=== PATIENT | female | born 1995 | race Hispanic/Latino ===

== ENCOUNTER 2018-09-21 16:22 | Inpatient (IN) | payer OTHER ==
[2018-09-21] VITALS (16 sets, daily range): BP systolic 137–181; BP diastolic 75–98
[~2018-09-21] VITALS: Ht 165.1 cm; Wt 73.9 kg
[2018-09-21] MEDS ORDERED: PREN1CAP4 PO (17:03)
[2018-09-21 17:49] LABS: HEMATOCRIT 28.8 % (36.0-47.0); HEMOGLOBIN 9.6 g/dl (12.0-15.5); MEAN CORPUSCULAR HEMOGLOBIN 30.6 pg (27.0-33.0); MEAN CORPUSCULAR HGB CONC 33.3 g/dl (32.0-36.5); MEAN CORPUSCULAR VOLUME 91.7 fl (80.0-96.0); PLATELET COUNT, AUTOMATED 141 10^3/uL (150-450); RED BLOOD COUNT 3.14 10^6/uL (4.00-5.40); WHITE BLOOD COUNT 12.1 10^3/uL (4.0-10.0)
[2018-09-21] MEDS ORDERED: LR 1,000 ML IV ONE (18:00)
[2018-09-21] MEDS ORDERED: FIORICET TAB PO ONE (18:00)
[2018-09-21] MEDS ORDERED: ONDANSETRON 4MG/2ML VIAL (J2405) IV ONE (18:00)
[2018-09-21 18:08] LABS: ALBUMIN 2.7 GM/DL (3.2-5.2); ALT/SGPT 25 U/L (12-78); BILIRUBIN,TOTAL 0.4 MG/DL (0.2-1.0); BLOOD UREA NITROGEN 10 MG/DL (7-18); CALCIUM LEVEL 8.4 MG/DL (8.5-10.1); CARBON DIOXIDE LEVEL 23 MEQ/L (21-32); CHLORIDE LEVEL 109 MEQ/L (98-107); CREATININE FOR GFR 0.76 MG/DL (0.55-1.30); GLOMERULAR FILTRATION RATE > 60.0 (>60); GLUCOSE, FASTING 99 MG/DL (70-100); POTASSIUM SERUM 4.1 MEQ/L (3.5-5.1); SODIUM LEVEL 139 MEQ/L (136-145)
[2018-09-21 18:24] LABS: TOTAL PROTEIN,RANDOM URINE 370.5 MG/DL (0.0-12.0)
[2018-09-21] MEDS: BETAMETHASONE SOLUSPAN 6MG/ML INJ 5ML (J0702) IM SCH (19:00)
[2018-09-21 19:16] LABS: APPEARANCE, URINE HAZY (CLEAR); BACTERIA, URINE AUTO NEGATIVE (NEGATIVE); BILIRUBIN, URINE AUTO NEGATIVE (NEGATIVE); BLOOD, URINE BLOOD NEGATIVE (NEGATIVE); COLOR, URINE YELLOW (YELLOW); GLUCOSE, URINE (UA) AUTO NEGATIVE (NEGATIVE); KETONE, URINE AUTO NEGATIVE (NEGATIVE); LEUKOCYTE ESTERASE, URINE AUTO TRACE (NEGATIVE); MUCUS, URINE SMALL (NEGATIVE); NITRITE, URINE AUTO NEGATIVE (NEGATIVE); PROTEIN, URINE AUTO 3+ mg/dL (NEGATIVE); RBC, URINE AUTO 2 /HPF (0-3); SPECIFIC GRAVITY URINE AUTO 1.018 (1.002-1.035); SQUAMOUS EPITHELIAL CELL UR AU 8 /HPF (0-6); UROBILINOGEN, URINE AUTO 0.2 mg/dL (0.0-2.0); WBC, URINE AUTO 23 /HPF (0-3)
--- NOTE | 2018-09-21 19:17 | NUR ---
[facility] L&D Observation Note S: Pooja is 23 y/o G1 who presents today at 36+2 weeks gestation via L/3 week for nausea and vomiting x 24 hours with dull frontal headache. She repor ts being unable to tolerate any solid foods x 24 hours. She denies any recent travel or sick contacts. She denies RUQ/epigastric pain or visual changes. Her is c/b limited ESL (Bulgarian speaking), ASC-H and elevated 1hr, unable to tolerate 3hr but nml finger stick assessments. O: VS-mild range BP's; one severe range systolic in 160's; afebrile GEN: A&Ox3, NAD ABD: gravid, NTTP; soft, no guarding or rebound tenderness EXT: Neg clonus; DTR's +2 FHR: 145 moderate variability; + accelerations; no decelerations TOCO: ctx5-8 minutes, mild intensity via palpation, relaxed uterine resting tone; pt denies feeling ctx Labs: WBC: 12.1;Hct: 28.8 (down from 34.1 at 28 weeks); PLT 141 (down from 220 at 28 weeks); AST 25; ALT 25; Creat 0.76; Spot urine/protein ratio 2.21. A/P: This is a 23 y/o G1 at 36+2 weeks via L with pre-eclampsia via labs/BP. Headache, nausea and vomiting have resolved since receipt of IV Zofran and oral Fioricet. CAT I FHR, irregular uterine ctx. Mild range BP's. James l adm steroids and continue with observation status for serial labs/vital signs and continuous FHM. Reviewed plan with Dr. Nair and he concurs. Reviewed plan with patient and her . They report understanding w/o questions/concerns.
--- NOTE | 2018-09-21 20:11 | IPNPDOC ---
Text Note Date of Service The patient was seen on 09/21/18. NOTE Accepting care of Pooja this evening. She's a 23 yo at 36+2 weeks who was admitted for observation due to a new diagnosis of pre eclampsia this evening when she presented to L&D with headaches and nausea. Blood pressures have been elevated, and she has had a couple severe range elevations. Tox labs: plts 141, Cr 0.76, AST/ALT 25/25, and pr:cr 2.2. Cat I FHR tracing with moderate variability, +accels, no decels. Headache and nausea significantly improved with zofran and fioricet. BTMZ given at ~1930. Plan for continuous FHR monitoring and observation over night on L&D. Will order Q6H toxemia labs and serial blood pressures. Should she have persistently severe range blood pressure, or the development of significant lab abnormalities, will start IV magnesium and move towards delivery. Armida Nair DO VS,Zeynep, I+O VS, Zeynep, I+O Laboratory Tests 09/21/18 17:34 Red Blood Count 3.14 L, Mean Corpuscular Volume 91.7, Mean Corpuscular Hemoglobin 30.6, Mean Corpuscular Hemoglobin Concent 33.3, Red Cell Distribution Width 13.9, Calcium Level 8.4 L, Aspartate Amino Transf (AST/SGOT) 25, Alanine Aminotransferase (ALT/SGPT) 25, Alkaline Phosphatase 216 H, Total Bilirubin 0.4, Total Protein 6.0 L, Albumin 2.7 L Vital Signs Date Time Temp Pulse Resp B/P (MAP) Pulse Ox O2 Delivery O2 Flow Rate FiO2 09/21/18 18:59 86 158/80 (106) 09/21/18 18:46 20 09/21/18 16:55 99.8 ARMIDA NAIR DO Sep 21, 2018 20:11
[2018-09-22] VITALS (33 sets, daily range): BP systolic 128–178; BP diastolic 69–100
[2018-09-22 00:08] LABS: HEMATOCRIT 29.8 % (36.0-47.0); MEAN CORPUSCULAR HEMOGLOBIN 31.3 pg (27.0-33.0); MEAN CORPUSCULAR HGB CONC 33.6 g/dl (32.0-36.5); MEAN CORPUSCULAR VOLUME 93.4 fl (80.0-96.0); PLATELET COUNT, AUTOMATED 136 10^3/uL (150-450); RED BLOOD COUNT 3.19 10^6/uL (4.00-5.40); WHITE BLOOD COUNT 13.2 10^3/uL (4.0-10.0)
[2018-09-22 00:15] LABS: ALT/SGPT 25 U/L (12-78); BILIRUBIN,TOTAL 0.6 MG/DL (0.2-1.0); CREATININE FOR GFR 0.79 MG/DL (0.55-1.30); GLOMERULAR FILTRATION RATE > 60.0 (>60); LDH LACTATE DEHYDROGENASE 248 U/L (84-246); URIC ACID 5.9 MG/DL (2.6-6.0)
--- NOTE | 2018-09-22 01:11 | IPNPDOC ---
Text Note Date of Service The patient was seen on 09/22/18. NOTE Patient remains stable. FHR Cat I. BPs normal to mildly elevated. She denies any headaches, RUQ pain, or visual changes. Repeat labs revealed platelets 136, AST/ALT 26/25, Cr 0.79. Continue with observation. Next dose of steroids due at 1930 today. All patient and questions answered. DO Korey VS,Zeynep, I+O VS, Zeynep, I+O Laboratory Tests 09/21/18 17:34 Red Blood Count 3.14 L, Mean Corpuscular Volume 91.7, Mean Corpuscular Hemoglobin 30.6, Mean Corpuscular Hemoglobin Concent 33.3, Red Cell Distribution Width 13.9, Calcium Level 8.4 L, Aspartate Amino Transf (AST/SGOT) 25, Alanine Aminotransferase (ALT/SGPT) 25, Alkaline Phosphatase 216 H, Total Bilirubin 0.4, Total Protein 6.0 L, Albumin 2.7 L 09/21/18 23:40 Red Blood Count 3.19 L, Mean Corpuscular Volume 93.4, Mean Corpuscular Hemoglobin 31.3, Mean Corpuscular Hemoglobin Concent 33.6, Red Cell Distribution Width 14.1, Aspartate Amino Transf (AST/SGOT) 26, Alanine Aminotransferase (ALT/SGPT) 25, Total Bilirubin 0.6, Lactate Dehydrogenase 248 H, Uric Acid 5.9 Vital Signs Date Time Temp Pulse Resp B/P (MAP) Pulse Ox O2 Delivery O2 Flow Rate FiO2 09/21/18 23:35 85 141/75 (97) 09/21/18 18:46 20 09/21/18 16:55 99.8 I&O- Last 24 Hours up to 6 AM 09/22/18 06:00 Intake Total 2350 ml Output Total 250 ml Balance 2100 ml ARMIDA SORENSON DO Sep 22, 2018 01:11
[2018-09-22 06:24] LABS: HEMATOCRIT 32.1 % (36.0-47.0); HEMOGLOBIN 10.4 g/dl (12.0-15.5); MEAN CORPUSCULAR HEMOGLOBIN 30.9 pg (27.0-33.0); MEAN CORPUSCULAR HGB CONC 32.4 g/dl (32.0-36.5); MEAN CORPUSCULAR VOLUME 95.3 fl (80.0-96.0); PLATELET COUNT, AUTOMATED 155 10^3/uL (150-450); RED BLOOD COUNT 3.37 10^6/uL (4.00-5.40); WHITE BLOOD COUNT 15.6 10^3/uL (4.0-10.0)
[2018-09-22 06:52] LABS: ALBUMIN 2.8 GM/DL (3.2-5.2); ALT/SGPT 29 U/L (12-78); BILIRUBIN,TOTAL 0.6 MG/DL (0.2-1.0); BLOOD UREA NITROGEN 11 MG/DL (7-18); CALCIUM LEVEL 8.5 MG/DL (8.5-10.1); CARBON DIOXIDE LEVEL 23 MEQ/L (21-32); CHLORIDE LEVEL 108 MEQ/L (98-107); CREATININE FOR GFR 0.82 MG/DL (0.55-1.30); GLOMERULAR FILTRATION RATE > 60.0 (>60); GLUCOSE, FASTING 147 MG/DL (70-100); POTASSIUM SERUM 4.2 MEQ/L (3.5-5.1); SODIUM LEVEL 138 MEQ/L (136-145); TOTAL PROTEIN 6.3 GM/DL (6.4-8.2)
[2018-09-22] MEDS: PRENATAL VITAMINS CHEWABLE TABLET PO SCH (09:00)
--- NOTE | 2018-09-22 09:25 | IPNPDOC ---
Text Note Date of Service The patient was seen on 09/22/18. NOTE I accepted care of Pooja at 0730 this morning. In brief, she is a 23yo w/SIUP at 36w3d by lmp c/w 9wk u/s admitted for observation due to a new diagnosis of pre-eclampsia withOUT severe features last night (based on urine prot/creat 2.2 and bp's) when she presented to L&D with headache and nausea. She received fioricet for her MALCOLM and had complete relief. This morning she states she has NO headache. No vision changes or upper abdominal pain. Feels good movement. No regular ctx/LOF/vaginal bleeding. course: A negative MBT- received rhogam 07/30, elevated 1hr glucola (couldn't tolerate 3hr GTT) with normal week of fingersticks PMhx: ASCUS-H Apr 2018 with plan for colposcopy , otherwise benign Vitals: BP range 133/81 to 164/100, recently 157/86, pulse 70, afebrile General: WDWN, resting comfortably in bed after recent shower Abdomen: soft, NTTP, gravid Extremities: no edema BLE Cat I FHR tracing with bl 130, moderate variability, +accels, no decels [place]: no ctx Labs: Urine protein/creatinine 2.2 CBC (1734 on 09/21): WBC 12.1, H/H 9.6/28.8, plt 141 CBC (0612 on 09/22): WBC 15.6, H/H 10.4/32.1, plt 155 Creatinine 0.76 --> 0.82 AST 26, ALT 29 Assessment: Pt is a 23yo w/SIUP at 36w3d by lmp c/w 9wk u/s admitted for observation due to a new diagnosis of pre-eclampsia withOUT severe features last night (based on urine prot/creat 2.2 and bp's). BPs range from normal to occasional (non-sustained) severe range. MALCOLM completely resolved with fioricet and she has no further sx of pre-E. Plt, creatinine and LFTs stable. Reassuring status. Plan: -Continue routine antepartum care with CEFHRM on L&D -2nd dose of BTMZ tonight at 1930 -Serial bp -Repeat CBC and CMP tonight at 1900 -Regular diet -PNV -Should patient have persistently severe range blood pressure or the development of significant lab abnormalities, will start IV magnesium and move towards delivery -Safe to proceed Dr. Sade Downing MD VS,Zeynep, I+O VS, Zeynep I+O Laboratory Tests 09/21/18 17:34 Red Blood Count 3.14 L, Mean Corpuscular Volume 91.7, Mean Corpuscular Hemoglobin 30.6, Mean Corpuscular Hemoglobin Concent 33.3, Red Cell Distribution Width 13.9, Calcium Level 8.4 L, Aspartate Amino Transf (AST/SGOT) 25, Alanine Aminotransferase (ALT/SGPT) 25, Alkaline Phosphatase 216 H, Total Bilirubin 0.4, Total Protein 6.0 L, Albumin 2.7 L 09/21/18 23:40 Red Blood Count 3.19 L, Mean Corpuscular Volume 93.4, Mean Corpuscular Hemoglobin 31.3, Mean Corpuscular Hemoglobin Concent 33.6, Red Cell Distribution Width 14.1, Aspartate Amino Transf (AST/SGOT) 26, Alanine Aminotransferase (ALT/SGPT) 25, Total Bilirubin 0.6, Lactate Dehydrogenase 248 H, Uric Acid 5.9 09/22/18 06:12 Red Blood Count 3.37 L, Mean Corpuscular Volume 95.3, Mean Corpuscular Hemoglobin 30.9, Mean Corpuscular Hemoglobin Concent 32.4, Red Cell Distribution Width 14.0, Calcium Level 8.5, Aspartate Amino Transf (AST/SGOT) 26, Alanine Aminotransferase (ALT/SGPT) 29, Alkaline Phosphatase 227 H, Total Bilirubin 0.6, Total Protein 6.3 L, Albumin 2.8 L Vital Signs Date Time Temp Pulse Resp B/P (MAP) Pulse Ox O2 Delivery O2 Flow Rate FiO2 09/22/18 07:35 98.4 70 157/86 (109) 09/21/18 18:46 20 I&O- Last 24 Hours up to 6 AM 09/22/18 06:00 Intake Total 2550 ml Output Total 700 ml Balance 1850 ml Sade Downing MD Sep 22, 2018 09:25
[2018-09-22] MEDS ORDERED: ACETAMINOPHEN 500 MG TAB PO PRN (09:30)
[2018-09-22 18:59] LABS: HEMATOCRIT 29.3 % (36.0-47.0); HEMOGLOBIN 9.5 g/dl (12.0-15.5); MEAN CORPUSCULAR HEMOGLOBIN 30.7 pg (27.0-33.0); MEAN CORPUSCULAR HGB CONC 32.4 g/dl (32.0-36.5); MEAN CORPUSCULAR VOLUME 94.8 fl (80.0-96.0); PLATELET COUNT, AUTOMATED 151 10^3/uL (150-450); RED BLOOD COUNT 3.09 10^6/uL (4.00-5.40); WHITE BLOOD COUNT 14.1 10^3/uL (4.0-10.0)
[2018-09-22 19:32] LABS: ALBUMIN 2.5 GM/DL (3.2-5.2); ALT/SGPT 25 U/L (12-78); BILIRUBIN,TOTAL 0.2 MG/DL (0.2-1.0); BLOOD UREA NITROGEN 15 MG/DL (7-18); CALCIUM LEVEL 8.6 MG/DL (8.5-10.1); CARBON DIOXIDE LEVEL 23 MEQ/L (21-32); CHLORIDE LEVEL 109 MEQ/L (98-107); GLOMERULAR FILTRATION RATE > 60.0 (>60); GLUCOSE, FASTING 112 MG/DL (70-100); POTASSIUM SERUM 3.9 MEQ/L (3.5-5.1); SODIUM LEVEL 137 MEQ/L (136-145); TOTAL PROTEIN 6.4 GM/DL (6.4-8.2)
[2018-09-22] MEDS: BETAMETHASONE SOLUSPAN 6MG/ML INJ 5ML (J0702) IM SCH (19:43)
[2018-09-22] MEDS ORDERED: LABETALOL HCL 100 MG/20 ML VIAL IV STA ×2 (22:41→23:59)
[2018-09-22] MEDS ORDERED: LABETALOL HCL 100 MG/20 ML VIAL As Ordered ONE (22:43)
[2018-09-23] VITALS (107 sets, daily range): BP systolic 112–186; BP diastolic 55–116
[2018-09-23] MEDS ORDERED: LABETALOL HCL 100 MG/20 ML VIAL IV STA (01:46)
--- NOTE | 2018-09-23 02:02 | NUR ---
L&D Note: - patient with persistently severe range BP. Has received two doses 20mg labetalol and 1 for 40mg. Denies headaches, visual changes or abd pain. VS: 176/84, AF cat 1 tracing FHR 130s, moderate variability, spontaneous acceleration, no deceleration gen: well appearing, NAD CVS: RRR Chest: CTAB cx: long/closed A/P: 23yo G1 at 36w4d with preeclampsia with severe features ( severely elevated BPs) -I discussed finding with couple and plan of care. We discussed the use of antihypertensive medications, potential use of mag sulfate for neuroprotection. I also discussed IOL and medication use and associated risk. All questions answered and will proceed with IOL with oral cyctec 50mcg. GBS prophylaxis in labor /SROM. Tara Ann MD
[2018-09-23] MEDS: miSOPROStol 50 MCG 1/2 TAB (S0191) PO SCH ×3 (02:03→11:25)
[2018-09-23] MEDS ORDERED: hydrALAZINE INJ 20 MG/ML VIAL IV STA (02:42)
[2018-09-23] MEDS ORDERED: LABETALOL 200 MG TAB PO ONE (02:47)
[2018-09-23 08:39] LABS: HEMATOCRIT 29.7 % (36.0-47.0); HEMOGLOBIN 9.7 g/dl (12.0-15.5); MEAN CORPUSCULAR HEMOGLOBIN 31.4 pg (27.0-33.0); MEAN CORPUSCULAR HGB CONC 32.7 g/dl (32.0-36.5); MEAN CORPUSCULAR VOLUME 96.1 fl (80.0-96.0); PLATELET COUNT, AUTOMATED 151 10^3/uL (150-450); RED BLOOD COUNT 3.09 10^6/uL (4.00-5.40); WHITE BLOOD COUNT 17.4 10^3/uL (4.0-10.0)
[2018-09-23 09:00] LABS: ALBUMIN 2.6 GM/DL (3.2-5.2); ALT/SGPT 23 U/L (12-78); BILIRUBIN,TOTAL 0.2 MG/DL (0.2-1.0); BLOOD UREA NITROGEN 15 MG/DL (7-18); CALCIUM LEVEL 8.6 MG/DL (8.5-10.1); CARBON DIOXIDE LEVEL 19 MEQ/L (21-32); CHLORIDE LEVEL 112 MEQ/L (98-107); CREATININE FOR GFR 0.82 MG/DL (0.55-1.30); GLOMERULAR FILTRATION RATE > 60.0 (>60); GLUCOSE, FASTING 109 MG/DL (70-100); POTASSIUM SERUM 4.1 MEQ/L (3.5-5.1); SODIUM LEVEL 141 MEQ/L (136-145); TOTAL PROTEIN 6.1 GM/DL (6.4-8.2)
[2018-09-23] MEDS: LABETALOL 200 MG TAB PO SCH ×2 (09:02→22:09)
[2018-09-23] MEDS: PRENATAL VITAMINS CHEWABLE TABLET PO SCH (09:02)
--- NOTE | 2018-09-23 12:10 | IPNPDOC ---
Obstetrical Progress Note Date of Service Sep 23, 2018 Subjective Assumed care at 0730 of 23yo at 36+4wks, currently undergoing IOL d/t Pre- e. Pt s/p IV labetalol x3 and IV hydralazine x1, now on PO labetalol for HTN. Pt has received 3x doses of 50mcg cytotec, last dose at 1125 buccal. S: Pt feels some cramping with intermittent contractions, otherwise has no complaints. Pt denies all s/sx of Pre-E at time of assessment at 0900. O: BPs remain mild range with most recent normotensive VE deferred FHR 135, moderate variablity,+accels. 1x isolated late deceleration noted, but resolved and FHR remains reassuring. CTX presents, but very mild and irregular A: IOL for Pre-E, not in labor; category I FHT P: Reassess labor 4 hours after last cytotec dose; consider 4th dose or CRB if cervix favorable CEFM x2 Continue to monitor maternal/ status Co-manage with OB and consult as needed Anticipate Objective Vital Signs Date Time Temp Pulse Resp B/P (MAP) Pulse Ox O2 Delivery O2 Flow Rate FiO2 09/23/18 11:10 81 18 133/72 (92) 09/23/18 07:16 98.4 Assessment Heart Rate (FHR): 135 Variability: Moderate Accelerations: Positive Decelerations: None Heart Rate Tracing: Category I CASIE ROMERO CNM Sep 23, 2018 12:10
[2018-09-23] MEDS ORDERED: OXYTOCIN DRIP 30 UNITS in APPROPRIATE DILUENT 1 EA IV SCH (16:45)
--- NOTE | 2018-09-23 17:11 | IPNPDOC ---
Obstetrical Progress Note Date of Service Sep 23, 2018 Subjective In room at 1545 for assessment. Note written at 1700. 23yo at 36+5wks, now s/p 3x 50mcg cytotec. Pt feeling contractions, decl haven pain medication. Pt denies all MALCOLM, visual changes, RUQ pain. FOB remains at bedside. O: BPs mostly mild range with intermittent severe range, not sustained. Last was 180/80 at 1700; 1627: 165/76; 1427: 182/93. VE: 4/50/-3 FHR 135, moderate variablity,+accels. Late decelerations noted (RNs at bedside performing interventions) CTX presents, mild by palpation. Q 1.5-3minutes A: IOL for Pre-E, entering early labor; category II FHT; intermittent severe range BPs P: CEFM x2 Continue interventions as needed for Category II FHT Start pitocin per protocol Continue to monitor maternal/ status Will consult with OB regarding starting magnesium sulfate for Pre-E Anticipate Objective Vital Signs Date Time Temp Pulse Resp B/P (MAP) Pulse Ox O2 Delivery O2 Flow Rate FiO2 09/23/18 11:10 81 18 133/72 (92) 09/23/18 07:16 98.4 CASIE ROMERO CNM Sep 23, 2018 17:11
[2018-09-23] MEDS: LR 1,000 ML IV SCH (17:15)
[2018-09-23] MEDS ORDERED: MAGNESIUM *L&D* 4 GM/100 ML BAG (40MG/ML) (J3475) IV ONE (17:30)
[2018-09-23] MEDS ORDERED: MAGNESIUM *L&D* 4 GM/100 ML BAG (40MG/ML) (J3475) As Ordered ONE (17:31)
[2018-09-23] MEDS ORDERED: MAGNESIUM SULFATE 4% INJ 20GM/500ML (40MG/ML) (J3475) As Ordered ONE (17:31)
[2018-09-23] MEDS ORDERED: CALCIUM GLUCONATE 1,000 MG in D5W MINI-BAG PLUS 100 ML IV PRN (17:45)
[2018-09-23] MEDS ORDERED: MAG Sulf (L&D) 4 GM/100 ML 4 GM in APPROPRIATE DILUENT 1 EA IV ONE (17:45)
[2018-09-23] MEDS: MAG Sulf (OBGYN) 20GM/500ML 20,000 MG in APPROPRIATE DILUENT 1 EA IV SCH (18:02)
[2018-09-23] MEDS ORDERED: hydrALAZINE INJ 20 MG/ML VIAL As Ordered ONE (18:19)
[2018-09-23] MEDS ORDERED: hydrALAZINE INJ 20 MG/ML VIAL IV ONE ×2 (18:30→20:30)
[2018-09-23] MEDS ORDERED: PANTOPRAZOLE 40MG INJ (PROTONIX) (C9113) IV ONE (19:00)
[2018-09-23 19:53] LABS: HEMATOCRIT 28.6 % (36.0-47.0); HEMOGLOBIN 9.2 g/dl (12.0-15.5); MEAN CORPUSCULAR HEMOGLOBIN 31.2 pg (27.0-33.0); MEAN CORPUSCULAR HGB CONC 32.2 g/dl (32.0-36.5); MEAN CORPUSCULAR VOLUME 96.9 fl (80.0-96.0); PLATELET COUNT, AUTOMATED 157 10^3/uL (150-450); RED BLOOD COUNT 2.95 10^6/uL (4.00-5.40); WHITE BLOOD COUNT 16.2 10^3/uL (4.0-10.0)
[2018-09-23] MEDS ORDERED: FENTANYL 2MCG/ML ROPIVACAINE 0.2% IN 0.9% NACL 100ML IVBAG As Ordered ONE (19:57)
--- NOTE | 2018-09-23 19:58 | IPNPDOC ---
Text Note Date of Service The patient was seen on 09/23/18. NOTE Patient feeling significantly increased pain and pressure. She is requesting an epidural. Cervix: 6/C/-1. FHR Cat I. She received 10mg IV hydralazine for severe hypertension, and BP is now in the mild range. IV magnesium is running for seizure prophylaxis. She is contr acting well on her own power. Safe to proceed. DO Korey VSZeynep, I+O VS, Zeynep I+O Laboratory Tests 09/23/18 08:26 Red Blood Count 3.09 L, Mean Corpuscular Volume 96.1 H, Mean Corpuscular Hemoglobin 31.4, Mean Corpuscular Hemoglobin Concent 32.7, Red Cell Distribution Width 14.5, Calcium Level 8.6, Aspartate Amino Transf (AST/SGOT) 23, Alanine Aminotransferase (ALT/SGPT) 23, Alkaline Phosphatase 204 H, Total Bilirubin 0.2, Total Protein 6.1 L, Albumin 2.6 L 09/23/18 17:49 Red Blood Count 2.95 L, Mean Corpuscular Volume 96.9 H, Mean Corpuscular Hemoglobin 31.2, Mean Corpuscular Hemoglobin Concent 32.2, Red Cell Distribution Width 14.6 H Vital Signs Date Time Temp Pulse Resp B/P (MAP) Pulse Ox O2 Delivery O2 Flow Rate FiO2 09/23/18 19:00 108 20 167/84 (111) 09/23/18 18:43 98.3 I&O- Last 24 Hours up to 6 AM 09/23/18 06:00 Intake Total 1680 ml Output Total 3450 ml Balance -1770 ml ARMIDA SORENSON DO Sep 23, 2018 19:58
[2018-09-23] MEDS ORDERED: ONDANSETRON 4MG/2ML VIAL (J2405) IV PRN (20:44)
[2018-09-23] MEDS ORDERED: REFRIGERATOR IV KEYS XX PRN (20:44)
[2018-09-23] MEDS ORDERED: diphenhydrAMINE INJ 50MG/ML VIAL (J1200) IV PRN (20:44)
[2018-09-23] MEDS ORDERED: EPIDURAL/PCA KEYS XX PRN (20:44)
[2018-09-23] MEDS ORDERED: LACTATED RINGER'S 1000 ML IV PRN (20:44)
[2018-09-23] MEDS ORDERED: EPIDURAL COMMENT XX SCH (20:44)
[2018-09-23] MEDS ORDERED: ePHEDrine SULFATE 25 MG/5 ML(5MG/ML) SYRINGE IV PRN (20:44)
[2018-09-23] MEDS ORDERED: FENTANYL/ROPIVACAINE/NACL BAG 100 ML EPIDURAL SCH (20:44)
[2018-09-23] MEDS ORDERED: NALOXONE INJ 0.4 MG/1 ML VIAL (J2310) IV PRN (20:44)
--- NOTE | 2018-09-23 22:17 | IPNPDOC ---
Text Note Date of Service The patient was seen on 09/23/18. NOTE Patient more comfortable after epidural but still feeling pressure. Cervix: 8-9/C/0. AROM performed productive of a moderate amount of clear/bloody fluid. FHR Cat II, intermittent lates, but moderate variability. Hold ordered hydralazine. BPs normal to only slightly elevated. Gently bolus fluids. Safe to proceed. DO Korey VS,Zeynep, I+O VS, Zeynep, I+O Laboratory Tests 09/23/18 08:26 Red Blood Count 3.09 L, Mean Corpuscular Volume 96.1 H, Mean Corpuscular Hemoglobin 31.4, Mean Corpuscular Hemoglobin Concent 32.7, Red Cell Distribution Width 14.5, Calcium Level 8.6, Aspartate Amino Transf (AST/SGOT) 23, Alanine Aminotransferase (ALT/SGPT) 23, Alkaline Phosphatase 204 H, Total Bilirubin 0.2, Total Protein 6.1 L, Albumin 2.6 L 09/23/18 17:49 Red Blood Count 2.95 L, Mean Corpuscular Volume 96.9 H, Mean Corpuscular Hemoglobin 31.2, Mean Corpuscular Hemoglobin Concent 32.2, Red Cell Distribution Width 14.6 H Vital Signs Date Time Temp Pulse Resp B/P (MAP) Pulse Ox O2 Delivery O2 Flow Rate FiO2 09/23/18 22:09 101 142/81 09/23/18 19:00 20 09/23/18 18:43 98.3 I&O- Last 24 Hours up to 6 AM 09/23/18 06:00 Intake Total 1680 ml Output Total 3450 ml Balance -1770 ml ARMIDA SORENSON DO Sep 23, 2018 22:17
[2018-09-24] VITALS (33 sets, daily range): BP systolic 117–154; BP diastolic 64–87
[2018-09-24 00:12] LABS: CORD GAS ABE A -12.3; CORD GAS HCO3 A 19.4 MEQ/L; CORD GAS O2 SAT A 62.7 %; CORD GAS PCO2 A 69.6 mmHg; CORD GAS PH A 7.064 UNITS; CORD GAS PO2 A 36.5 mmHg; CORD GAS SBC A 14.4 MEQ/L; CORD GAS TCO2 A 21.6 MEQ/L
[2018-09-24 00:17] LABS: CORD GAS ABE V -8.2; CORD GAS HCO3 V 21.1 MEQ/L; CORD GAS O2 SAT V 20.2 %; CORD GAS PCO2 V 58.5 mmHg; CORD GAS PH V 7.176 UNITS; CORD GAS PO2 V 14.6 mmHg; CORD GAS SBC V 16.2 MEQ/L; CORD GAS TCO2 V 22.9 MEQ/L
--- NOTE | 2018-09-24 00:53 | DNPDOC ---
[facility] Delivery Note Delivery Note DATE OF DELIVERY: 23Sep2018 at ~2330 PREDELIVERY DIAGNOSIS: 36+4 weeks gestation and IOL for severe pre eclampsia POST DELIVERY DIAGNOSIS: Delivered. PROCEDURE: Spontaneous vaginal delivery PET WALKER: Dr. Nair ANESTHESIA: Epidural ESTIMATED BLOOD LOSS: 200 mL. FINDINGS: Viable male infant, 4lbs 9oz, Apgars 8/9 DELIVERY SUMMARY: Called to room as patient felt urge to push. Exam revealed fetus at +2 station. The bed was broken down and she was prepped for delivery. With excellent pushing effort her infant delivered. presentation was DEMETRIS with restitution to ROT. The left anterior shoulder delivered with gentle traction followed easily by the remainder of the body. The infant was dried and stimulated on the field and a bulb suction was used. The was then placed on the maternal abdomen and cried vigorously. The three vessel cord was then clamped and cut by the FOB after appropriate time delay. Cord gases were obt ained. Third stage was then completed with gentle traction on the cord and it was productive of an intact placenta. The uterine fundus was firmed with massage and pitocin was administered IV bolus. Inspection of the vagina, perineum, and cervix revealed bilateral vaginal sidewall and bilateral labial lacerations. The lacerations were repaired with 3-0 and 4-0 vicryl suture in t he usual fashion. There was excellent cosmesis and hemostasis after the repair. The fundus was palpated again and was firm. Sponge, instrument, and needle counts were correct X2. Mother stable when I left the room. DO DELTA Rowe CHRISTOPHER J. DO Sep 24, 2018 00:53
[2018-09-24] MEDS: LR 1,000 ML IV SCH ×2 (04:00→14:54)
[2018-09-24 06:37] LABS: HEMATOCRIT 25.8 % (36.0-47.0); HEMOGLOBIN 8.3 g/dl (12.0-15.5); MEAN CORPUSCULAR HEMOGLOBIN 30.3 pg (27.0-33.0); MEAN CORPUSCULAR HGB CONC 32.2 g/dl (32.0-36.5); MEAN CORPUSCULAR VOLUME 94.2 fl (80.0-96.0); PLATELET COUNT, AUTOMATED 156 10^3/uL (150-450); RED BLOOD COUNT 2.74 10^6/uL (4.00-5.40); WHITE BLOOD COUNT 15.7 10^3/uL (4.0-10.0)
--- NOTE | 2018-09-24 08:03 | IPNPDOC ---
Progress Note Date of Service: Sep 24, 2018 Progress Note 23 yo G1 now P1 s/p uncomplicated last night around 2330 after being admitted for an IOL for pre eclampsia. IV magnesium was started yesterday evening due to persistently severe range BPs and continues at 1gm/hr . No acute events overnight after delivery. Pooja reports feeling well this AM. She denies any headaches, RUQ pain, or visual changes. She is tolerating a regular diet and denies any n/v, fevers/chills, SOB, chest pain. Vitals - VSS, afebrile, normotensive, non tachycardic General - AAOX3, sitting up in bed, NAD, pleasant and conversant CV - RRR Lungs - CTAB Abdomen - Fundus firm at U-2, no tenderness to palpation Extremities - No edema UO - Appropriate Labs: Stable Pooja is doing well this morning and is making an appropriate recovery. Urine output appropriate and BPs stable. Plan to continue IV magnes ium for maternal seizure prophylaxis today. Otherwise continue routine care. DO Korey VS, I&O, 24H, Zeynep Vital Signs/I&O Vital Signs Date Time Temp Pulse Resp B/P (MAP) Pulse Ox O2 Delivery O2 Flow Rate FiO2 09/24/18 07:18 99.9 09/24/18 06:58 102 136/84 (101) 09/24/18 06:06 16 I&O- Last 24 Hours up to 6 AM 09/24/18 05:59 Intake Total 1927.7 ml Output Total 3240 ml Balance -1312.3 ml Laboratory Data 24H LABS Laboratory Tests 2 09/23/18 08:26: Nucleated Red Blood Cells % (auto) 0.3H, Anion Gap 10, Glomerular Filtration Rate > 60.0, Blood Urea Nitrogen 15, Creatinine 0.82, Sodium Level 141, Potas sium Level 4.1, Chloride Level 112H, Carbon Dioxide Level 19L, Calcium Level 8.6, Aspartate Amino Transf (AST/SGOT) 23, Alanine Aminotransferase (ALT/SGPT) 23, Alkaline Phosphatase 204H, Total Bilirubin 0.2, Total Protein 6.1L, Albumin 2.6L, Albumin/Globulin Ratio 0.74L 09/23/18 17:49: Nucleated Red Blood Cells % (auto) 0.4H 09/23/18 23:52: Cord Arterial Blood pH 7.064, Cord Arterial Blood PCO2 69.6, Cord Arterial Blood PO2 36.5, Cord Arterial Blood HCO3 19.4, Cord Arterial Blood Total CO2 21.6, Cord Arterial Blood Base Excess -12.3, Cord Arterial Base Excess (Standard 14.4, Cord Arterial Bld Oxygen Saturation 62.7, Cord Venous Blood pH 7.176, Cord Ve nous Blood PCO2 58.5, Cord Venous Blood PO2 14.6, Cord Venous Blood HCO3 21.1, Cord Venous Blood Total CO2 22.9, Cord Venous Base Excess (Actual) -8.2, Cord Venous Base Excess (Standard) 16.2, Cord Venous Blood Oxygen Saturation 20.2 09/24/18 06:09: Nucleated Red Blood Cells % (auto) 0.4H CBC/BMP Laboratory Tests 09/23/18 08:26 Red Blood Count 3.09 L, Mean Corpuscular Volume 96.1 H, Mean Corpuscular Hemoglobin 31.4, Mean Corpuscular Hemoglobin Concent 32.7, Red Cell Distribution Width 14.5, Calcium Level 8.6, Aspartate Amino Transf (AST/SGOT) 23, Alanine Aminotransferase (ALT/SGPT) 23, Alkaline Phosphatase 204 H, Total Bilirubin 0.2, Total Protein 6.1 L, Albumin 2.6 L 09/23/18 17:49 Red Blood Count 2.95 L, Mean Corpuscular Volume 96.9 H, Mean Corpuscular Hemoglobin 31.2, Mean Corpuscular Hemoglobin Concent 32.2, Red Cell Distribution Width 14.6 H 09/24/18 06:09 Red Blood Count 2.74 L, Mean Corpuscular Volume 94.2, Mean Corpuscular Hemoglobin 30.3, Mean Corpuscular Hemoglobin Concent 32.2, Red Cell Distribution Width 14.9 H ARMIDA SORENSON DO Sep 24, 2018 08:03
[2018-09-24] MEDS: MAG Sulf (OBGYN) 20GM/500ML 20,000 MG in APPROPRIATE DILUENT 1 EA IV SCH (10:14)
[2018-09-24] MEDS ORDERED: IBUPROFEN 800 MG TAB PO PRN (10:30)
[2018-09-24] MEDS: PRENATAL VITAMINS CHEWABLE TABLET PO SCH (10:39)
[2018-09-24] MEDS: ACETAMINOPHEN 500 MG TAB PO PRN (10:40)
[2018-09-24 18:23] LABS: HEMATOCRIT 24.3 % (36.0-47.0); MEAN CORPUSCULAR HEMOGLOBIN 30.9 pg (27.0-33.0); MEAN CORPUSCULAR HGB CONC 32.9 g/dl (32.0-36.5); MEAN CORPUSCULAR VOLUME 93.8 fl (80.0-96.0); PLATELET COUNT, AUTOMATED 159 10^3/uL (150-450); RED BLOOD COUNT 2.59 10^6/uL (4.00-5.40); WHITE BLOOD COUNT 12.4 10^3/uL (4.0-10.0)
[2018-09-24 18:45] LABS: ALBUMIN 2.1 GM/DL (3.2-5.2); ALT/SGPT 24 U/L (12-78); BILIRUBIN,TOTAL 0.2 MG/DL (0.2-1.0); BLOOD UREA NITROGEN 14 MG/DL (7-18); CALCIUM LEVEL 7.5 MG/DL (8.5-10.1); CARBON DIOXIDE LEVEL 24 MEQ/L (21-32); CHLORIDE LEVEL 110 MEQ/L (98-107); CREATININE FOR GFR 0.83 MG/DL (0.55-1.30); GLOMERULAR FILTRATION RATE > 60.0 (>60); GLUCOSE, FASTING 91 MG/DL (70-100); POTASSIUM SERUM 3.9 MEQ/L (3.5-5.1); SODIUM LEVEL 142 MEQ/L (136-145); TOTAL PROTEIN 5.3 GM/DL (6.4-8.2)
[2018-09-25] VITALS (7 sets, daily range): BP systolic 136–163; BP diastolic 73–91
--- NOTE | 2018-09-25 06:35 | NUR ---
post note S: no complaints O: OG=239/73 P=100 AF NAD Abd: NT, FF ext: NT, tr edema LE's A/P 23 yo s/p 36+ weeks with preeclampsia Magnesium stopped at 2330 last night D/C self this morning Harshil Ramirez MD
[2018-09-25] MEDS: LR 1,000 ML IV SCH ×2 (07:33→20:53)
[2018-09-25] MEDS: PRENATAL VITAMINS CHEWABLE TABLET PO SCH (11:12)
[2018-09-25] MEDS ORDERED: RHOGAM 300 MCG (1500 IU) INJ (J2790) IM SCH (14:15)
[2018-09-25] MEDS ORDERED: LABETALOL 200 MG TAB PO ONE (19:00)
[2018-09-26] VITALS (10 sets, daily range): BP systolic 116–170; BP diastolic 63–106
[2018-09-26] MEDS ORDERED: NIFEdipine 10 MG CAP PO STA (02:40)
[2018-09-26] MEDS ORDERED: LABETALOL 100 MG TAB PO STA (02:40)
[2018-09-26] MEDS: ACETAMINOPHEN 500 MG TAB PO PRN (06:23)
[2018-09-26] MEDS ORDERED: RHOGAM 300 MCG (1500 IU) INJ (J2790) IM SCH (07:30)
[2018-09-26] MEDS ORDERED: RHOGAM 300 MCG (1500 IU) INJ (J2790) IM ONE (07:30)
--- NOTE | 2018-09-26 08:03 | IPNPDOC ---
Progress Note Date of Service: Sep 26, 2018 Day#: 3 Progress Note Subjective: Pt doing well. No questions. C/o MALCOLM s/p procardia dose. Denies vis ion change, RUQ/epigastric pain. Lochia minimal. Tolerating PO. + flatus. Denies CP, SOB, or leg pain. Ambulating and voiding without issue. OBJECTIVE: VITAL SIGNS: Within normal limits, afebrile. Alert and oriented times three. Breath sounds clear to auscultation. Heart rate: Regular rate and rhythm, no murmurs, rubs or gallops. Abdomen: Fundus firm at U-2. Soft, NTTP. Minimal lochia. Assessment: 23yo PPD#3 s/p c/b preeclampsia with severe features s/p 24 hour magnesium. PLAN: 1. Labetalol 300mg BID, s/p single dose of procardia 10mg PO. 2. Tylenol and Motrin for pain. 3. Encourage breast feeding and ambulation. 4. Anticipate discharge home tomorrow if BPs remain normal to mild range VS, I&O, [facility] Vital Signs/I&O Vital Signs Date Time Temp Pulse Resp B/P (MAP) Pulse Ox O2 Delivery O2 Flow Rate FiO2 09/26/18 06:26 98.4 98 17 138/74 (95) 98 I&O- Last 24 Hours up to 6 AM 09/26/18 06:00 Intake Total 1500 ml Output Total 3375 ml Balance -1875 ml MURRAY SANTOS MD Sep 26, 2018 08:03
[2018-09-26] MEDS ORDERED: LABETALOL 200 MG TAB PO SCH (09:00)
[2018-09-26] MEDS: LABETALOL 100 MG TAB PO SCH ×2 (09:08→20:32)
[2018-09-26] MEDS: PRENATAL VITAMINS CHEWABLE TABLET PO SCH (09:08)
[2018-09-26] MEDS: LR 1,000 ML IV SCH (10:13)
[2018-09-27 02:00] VITALS: BP 140/78
[2018-09-27 05:54] VITALS: BP 145/84
--- NOTE | 2018-09-27 07:40 | NUR ---
PPD#4 S: Doing well w/o complaints. +voids, + ambulation, pain well controlled. Deneis headache, visual change abd pain. O: 145/84, AF gen: well appearing, NAD ab: soft, nttp, ff ext: neg calf tenderness A/P: PPD#4 s/p c/p severe preeclampsia - recovering in stable condition -continue routine -discharge plans possible for today Tara Ann MD
[2018-09-27 09:23] VITALS: BP 141/67
[2018-09-27] MEDS: PRENATAL VITAMINS CHEWABLE TABLET PO SCH (09:24)
[2018-09-27 09:25] VITALS: BP 141/67
[2018-09-27] MEDS: LABETALOL 100 MG TAB PO SCH (09:25)
[2018-09-27] MEDS ORDERED: IBUP80TA PO (09:42)
[2018-09-27] MEDS ORDERED: LABE10TAB PO (09:42)
--- NOTE | 2018-09-27 09:45 | DS.PDOC ---
Discharge Summary General Date of Admission Sep 23, 2018 at 01:36 Date of Discharge September 27, 2018 Discharge Summary HOSPITAL COURSE: Pooja is a 23 yo G1 now P1 who underwent an uncomplicated on 23Sep2018 after being admitted for an IOL for severe pre eclampsia. She received 24 hours of magnesium and was started on labetalol for BP control . Her course has otherwise been unremarkable. On her day of discharge she was meeting all appropriate discharge criteria. She was ambulating, voiding, tolerating a regular diet, and had minimal lochia. She had no headaches, RUQ pain, visual changes, or SOB on her day of discharge. DISCHARGE MEDICATIONS: Please see below. ALLERGIES: Please see below. PHYSICAL EXAMINATION ON DISCHARGE: VITAL SIGNS: Please see below. GENERAL: AAOX3, pleasant and conversant, NAD ABDOMINAL EXAMINATION: Fundus firm at U-2. No fundal tenderness EXTREMITIES: No edema PSYCHIATRIC EXAMINATION: Affect appropriate LABORATORY DATA: Please see below. ACTIVITY: Pelvic rest for 6 weeks. DIET: Regular DISCHARGE PLAN: Discharge home DISPOSITION: Discharge home or to [facility] on 27Sep2018. DISCHARGE INSTRUCTIONS: 1. Pelvic rest for 6 weeks ITEMS TO FOLLOWUP ON ON OUTPATIENT: 1. Walk in to [place] on Thursday, 29Sep2018 for a blood pressure check. DISCHARGE CONDITION: Stable. TIME SPENT ON DISCHARGE: Greater than 20 minutes. Armida Nair DO Vital Signs/I&Os Vital Signs Date Time Temp Pulse Resp B/P (MAP) Pulse Ox O2 Delivery O2 Flow Rate FiO2 09/27/18 09:25 87 141/67 09/27/18 09:23 98.9 18 98 Discharge Medications Scheduled Labetalol HCl (Labetalol HCl) 100 Mg Tablet, 300 MG PO BID 78/Iron/Folate 1/Dha (Prenate Dha Softgel) 1 Each Capsule, 1 CAP PO DAILY, (Reported) Scheduled PRN Ibuprofen (Ibuprofen) 800 Mg Tablet, 800 MG PO Q8HP PRN for MODERATE PAIN (PS 5- 7) Allergies Coded Allergies: No Known Drug Allergies (Verified Allergy, Unknown, 09/21/18) ARMIDA NAIR DO Sep 27, 2018 09:45
== END 2018-09-27 14:15 | disposition home or self-care (01) | DRG 807 ==
LOC: M LDO 16:22 → M LDI 19:10 → OBSVTOIN 09-23 01:36 → M OBS 09-24 08:39
PROVIDERS: ADMIT Advanced Practice Midwife; ATTEND Obstetrics & Gynecology
PROC: 10E0XZZ Delivery of Products of Conception, External Approach (ICD-10-PCS; principal; 2018-09-23)
PROC: 3E0P7GC Introduction of Other Therapeutic Substance into Female Reproductive, Via Natural or Artificial Opening (ICD-10-PCS; 2018-09-23)
PROC: 10907ZC Drainage of Amniotic Fluid, Therapeutic from Products of Conception, Via Natural or Artificial Opening (ICD-10-PCS; 2018-09-23)
PROC: 0HQ9XZZ Repair Perineum Skin, External Approach (ICD-10-PCS; 2018-09-23)
DX: O14.14 Severe pre-eclampsia complicating childbirth (principal); Z37.0 Single live birth; Z3A.36 36 weeks gestation of pregnancy; O70.0 First degree perineal laceration during delivery

== ENCOUNTER 2018-10-21 10:59 | Emergency (ER) | payer OTHER ==
[~2018-10-21] VITALS: Ht 165.1 cm; Wt 62.0 kg
[~2018-10-21 10:59] MED LIST: IBUP80TA PO; LABE10TAB PO; PREN1CAP4 PO
[2018-10-21 11:46] LABS: BASO % 0.6 % (0.0-1.0); EOS # 0.1 10^3/uL (0.0-0.50); EOS % 1.8 % (0.0-3.0); HEMATOCRIT 36.4 % (36.0-47.0); HEMOGLOBIN 11.8 g/dl (12.0-15.5); LYMPH # 2.1 10^3/uL (1.5-6.5); LYMPH % 40.6 % (24.0-44.0); MEAN CORPUSCULAR HEMOGLOBIN 30.5 pg (27.0-33.0); MEAN CORPUSCULAR HGB CONC 32.4 g/dl (32.0-36.5); MEAN CORPUSCULAR VOLUME 94.1 fl (80.0-96.0); MONO # 0.5 10^3/uL (0.0-0.8); MONO % 10.1 % (0.0-5.0); NEUTROPHILS # 2.4 10^3/uL (1.8-7.7); NEUTROPHILS % 46.5 % (36.0-66.0); PLATELET COUNT, AUTOMATED 249 10^3/uL (150-450); RED BLOOD COUNT 3.87 10^6/uL (4.00-5.40); WHITE BLOOD COUNT 5.1 10^3/uL (4.0-10.0)
[2018-10-21 13:57] LABS: CHLAMYDIA DNA AMPLIFICATION NEGATIVE (NEGATIVE); GC DNA AMPLIFICATION NEGATIVE (NEGATIVE)
[2018-10-21 14:09] VITALS: BP 127/68
--- NOTE | 2018-10-21 14:15 | REP ---
Pelvic ultrasound for pelvic pain that has been present for approximately 3 days. The patient had a vaginal on 09/23/2018. The study is performed with transabdominal, endovaginal and Doppler ultrasound assessment. The uterus is anteverted and normal size measuring 801 x 4.9 x 6.5 cm. The myometrium has a diffusely heterogeneous echotexture. The myometrium is diffusely hypervascular. The endometrium is not thickened measuring 7.6 mm. No endometrial masses are identified. However, with color Doppler assessment there is slightly increased vascular flow of the endometrium in the lower uterine segment compared to the remainder of the endometrium. Increased vascular flow can be seen in retained products of conception, however, there is no endometrial mass identified on the study today. Therefore, this slightly increased vascular flow pattern in the lower uterine segment endometrium is nonspecific and of uncertain significance. Right ovary. The colon. The right ovary is normal size measuring 3.4 x 2.0 x 2.8 cm. There is a 2.0 cm right ovarian cyst. There is right ovarian vascular flow with the Doppler resistive index of the parenchymal arteries measuring 0.50. Left ovary: The left ovary is normal size measuring 4.8 x 1.4 x 2.0 cm. There is no dominant mass or cyst. There is vascular flow with the Doppler resistive index of the parenchymal arteries measuring 0.65. Impression: 2.0 cm right ovarian cyst. Heterogeneous and hypervascular myometrium. There is no endometrial mass or endometrial thickening. There is slightly increased vascular flow of the endometrium in the lower uterine segment, nonspecific and of uncertain significance as discussed above. Electronically Signed by Trenton Brown MD 10/21/2018 02:07 P
[2018-10-21] MEDS ORDERED: KEFL500C17 PO (14:42)
[2018-10-21] MEDS ORDERED: METR1GEL7 PV (14:42)
--- NOTE | 2018-10-22 07:30 | ED PDOC ---
Post-Departure Follow-Up ft luz coleman faxed formal report of pelvic us for fu Bonita Nazario MD Oct 22, 2018 07:30
== END 2018-10-21 14:58 | disposition home or self-care (01) ==
LOC: M ED 10:59
DX: N39.0 Urinary tract infection, site not specified (principal); N76.0 Acute vaginitis; N83.201 Unspecified ovarian cyst, right side